=== PATIENT | female | born 1995 | race Caucasian/White ===

== ENCOUNTER 2023-11-07 07:58 | Outpatient (CLI) | payer BC, SELFPAY | END 2023-11-07 09:20 | disposition home or self-care (01) | LOC: LABOR 09:51 → OB 11-08 10:02 | PROVIDERS: Referring Provider Nurse Practitioner Obstetrics & Gynecology; Visit Provider Nurse Practitioner Obstetrics & Gynecology | DX: O48.0 Post-term pregnancy (principal); Z3A.40 40 weeks gestation of pregnancy | CPT/HCPCS: 59025; G0378; G0379 ==

== ENCOUNTER 2023-11-07 15:24 | Inpatient (IN) | payer BC, SELFPAY ==
--- NOTE | 2023-11-07 16:58 | PM.OBTRLD ---
Visit Information Visit Information Date of evaluation: 11/07/23 Primary OB Provider: Radha Goldstein Reason for Evaluation: Yes rule out labor Comments/Additional reasons for admission: Mary Colón, is a 28yo, @ 40w2d by LMP concordant with 11w US presenting for evaluation of labor. Contractions started around 0000 with blood tinged, clear SROM at 0450. Currently having mild contractions every 4-5 minutes that she is able to talk through. Denies vaginal bleeding. Vital Signs Vital Signs: see below. PFSH Surgical History Hx of repair of rotator cuff Family History Other Cancer Congestive heart failure Diabetes mellitus Hypertension Social History marital status: do you feel safe at home: Yes Smoking Status: Never smoker Review of Systems Review of Systems ROS: Yes All systems reviewed with the patient and are negative except as otherwise documented Exam Vital Signs (past 8 hours): BP: 125/78 HR: 93bpm T: 36.4c tempral Objective Labs 11/07/23 16:18 Evaluation Evaluation Baseline heart rate: 145 Variability: Moderate (11-25) monitor accelerations: Present Monitor Decelerations: Absent Contraction Frequency (minutes): 4 Uterine Contraction Intensity: Mild Category of Tracing: Reactive Diagnosis, Plan/Disposition Plan/Disposition Plan: A: 28yo, @ 40w2d Early labor Rh Negative GBS negative ROM x 4 hours RNST P: Reviewed reassuring FHR and mild contractions with Mary. Discussed option to go home and return when contractions become more intense or be admitted. Mary would like to go home and return when labor intensifies. Plan to admit upon return to L&D.
--- NOTE | 2023-11-07 17:30 | PM.OBHP.1 ---
OB HPI Date/Time Date of admission: 11/07/23 Date Patient Seen: 11/07/23 Time Patient Seen: 15:36 History of Present Condition Chief complaint: labor : 1 Para: 0 Estimated Date of Delivery: 11/05/23 Estimated Gestational Age (weeks): 40w2d Narrative: Mary Colón is a 28 year old female, @ 40w2d by sure LMP concordant with 11w US presenting for active labor. Contractions have increased in intensity, are now 3min apart, lasting 1min, and is having to breath heavily through them. Has continued to leak clear, blood tinged fluid. movement felt. Is accompanied by FOB and mother. Interested in low-intervention, vaginal , planning unmedicated, declines IV. care followed by CN. notable for: Rh negative. Relevant medical history: dyspareunia. History of Present care: good care, initiated at week # (12), number of visits (9) and pounds weight gain (31) Dating criteria: LMP confirmed by 1st trimester US Ultrasounds: normal 1st trimester US and normal mid trimester US Obstetrical complications: none Medical complications: none Preadmission Labs Blood type: A (-) negative -: Antibody screen: negative, GBS status: negative, HBsAG: negative, HIV: negative and RPR/VDLR: negative -: Chlamydia screen: not detected and Gonorrhea screen: not detected -: Rubella: immune and Varicella: immune HCT: 32.9 HCAB: negative PAP: Normal Cell-free DNA: negative Urine: normal 1 hr GTT: 70 Narrative: MsAFP negative Prior (ies) History: none Evaluation Evaluation Baseline heart rate: 145 Variability: Moderate (11-25) monitor accelerations: Present Monitor Decelerations: Early Contraction Frequency (minutes): 3 Uterine Contraction Intensity: Moderate Status: Category l Dilation (cm): 4 Effacement (%): 80 Dilation: 3-4 cm Effacement: >/=80% station: -2 Position of cervix: mid Consistency: soft Martinez score: 9 PFSH Surgical History Hx of repair of rotator cuff Family History Other Cancer Congestive heart failure Diabetes mellitus Hypertension Social History marital status: do you feel safe at home: Yes Smoking Status: Never smoker Meds Home Medications and Allergies Home Medications Medication Instructions Recorded Confirmed Type prenat.vits,maddie,jdi-ddeo-jvhyn tab 11/07/23 History Allergies Allergy/AdvReac Type Severity Reaction Status Date / Time amoxicillin Allergy Verified 11/07/23 18:00 Review of Systems Review of Systems ROS: Yes All systems reviewed with the patient and are negative except as otherwise documented OB Exam Vital signs Blood Pressure: 139/88 Pulse Rate: 87 Temperature: 97.0 F Resp Effort & Inspection: normal respiratory effort and able to speak in complete sentences Auscultation: clear to auscultation bilaterally Cardio Rate: regular rate Rhythm: regular rhythm Heart Sounds: S1 normal and S2 normal Presentation: vertex Objective Labs 11/07/23 16:18 Assessment and Plan Assessment and Plan Assessment and Plan narrative: A: 28yo, @ 40w2d Active labor Rh negative GBS negative FHR Cat I P: Admit with routine labs/order Appropriate for intermittent auscultation as desired Provide labor support as needed Reassess in 4hr or sooner prn
[2023-11-07 17:53] VITALS: BP 139/88
[2023-11-07 17:57] VITALS: BP 139/88; PULSE 87; TEMP 36.1
[2023-11-07 19:38] LABS: Add Manual Diff / Slide Review NO; Basophils Absolute Auto 100 /uL (0-100); Basophils Percent Auto 0.7 % (0-2); Eosinophils Absolute Auto 0 /uL (0-450); Eosinophils Percent Auto 0.1 % (2-4); Hemoglobin 12.8 g/dL (12.0-16.0); Lymphocytes Absolute Auto 800 /uL (1100-4500); Lymphocytes Percent Auto 4.7 % (25-40); Mean Corpuscular HGB Conc 33.7 % (30-36); Mean Corpuscular Hemoglobin 30.7 PG (26-34); Monocytes Absolute Auto 700 /uL (0-900); Monocytes Percent Auto 4.1 % (3-14); Neutrophils Absolute Auto 14600 /uL (1500-7000); Neutrophils Percent Auto 90.4 % (50-75); Platelet Count 202 X10^3/uL (150-400); Red Blood Cell Count 4.17 X10^6/uL (4.0-5.2); Red Cell Distribution Width 13.9 % (11.6-14.8); White Blood Cell Count 16.1 X10^3/uL (4.5-11.0)
[2023-11-07] MEDS: OXYTOCIN 10 UNIT/ML VIAL IM (23:18)
--- NOTE | 2023-11-08 00:02 | P.PCN_ITS ---
Procedures Date/Time Date of procedure: 11/08/23 Time of procedure: 01:00 General Procedure description: THIRD DEGREE PERINEAL LACERATION REPAIR PROCEDURE NOTE CTSP by Dominique Midwifery MICHELLE for repair of third degree laceration sustained at the time of primip late on the evening of 11/07/2023. Initial assessment confirms 3rd degree laceration, minimal bleeding following delivery. Options for pain relief discussed and patient would like regional block for repair. On- call anesthesia called and DUYEN placed. Once the patient was appropriately anesthetized, EUA confirmed earlier findings with bilateral sulcal tears and rectal exam showed no rectal mucosal defect or extension beyond the anal verge. Repair of the sulcal tears performed with 2-0 chromic in a running interlocking stitch. Repair of the midline third degree perineal laceration performed in layers with the sphincter repaired with 0 Vicryl reapproximating the sphincter mm. body as well and the surrounding fasciae, 0 Vicryl interrupteds/figure of eights approximating deep perineal body tissues, and 00 CCGS in a running interlocking or subcuticular stitch for closure of the vaginal/perineal skin edges, Patient tolerated repair well with an estimated EBL of <100 cc. Complications: none
--- NOTE | 2023-11-08 00:04 | P.PCNOB_ITS ---
Labor & Delivery Delivery date: 11/08/23 Cervical ripening method: none Induction method: none Delivery monitor: external FHT (intermittent auscultation) Route of delivery: L&D Laceration Description: Vaginal - 3rd Degree Delivery repair: other (See Dr. Vuong's note regarding repair) Quantitative Blood Loss: 362 Anesthesia Type: None Narrative: Mary Colón is a 28 year old female, now P1 @ 40w2d by sure LMP concordant with 11w US who presented for active labor with ruptured membranes. Contractions started around midnight with blood tinged, clear SROM at 0450. Upon admission, contractions were moderate, 3min apart, lasting 1min. Cervix was 4/80/-2, mid, soft. monitoring was Category I and was switched to intermittent auscultation. Normal labor course. Anesthesia type: none. Continuous labor support provided by FOB, mother, CNM, and SNM. Progressed to feeling rectal pressure and upon CE was found to be complete. Was coached/guided through pushing. heart rate was reassuring throughout pushing. Strong pushing approximately two and a half hours, with brisk bleeding noted shortly before mireles crown and subsequent delivery of vertex over 3rd degree perineal laceration. No nuchal cord, shoulders delivered with gentle traction. Baby girl placed on maternal stomach. Apgars 8 and 9. Pitocin IM administered to R deltoid for AMSTL. Perineum assessed and consulted with OB Dr. Vuong for further assessment and repair of suspected 3rd degree laceration. (See his note) Cierra placenta delivered at 19min with maternal pushing and gentle cord traction. QBL: 362 mL initally; 765 ml total after completion of repair approx 0230. Italia was skin to skin with Herrera during epidural placement and then breastfed well during laceration repair. Mary and Herrera are thrilled to meet their daughter, Italia! [place] Baby 1: gender: Female Presentation: vertex Position: Right Occiput Anterior Placenta delivery description: Spontaneous Cord Vessel Description: 3 Vessels score (1 min): 8 score (5 min): 9 weight: 4.088 kg Plan for aftercare: Routine care
--- NOTE | 2023-11-08 01:26 | PM.OBPNLAB ---
Date/Time Date Patient Seen: 11/08/23 Time Patient Seen: 20:00 Pain Control Pain control: tolerating well Comments: Mary is working hard in the tub room on hands & knees with and without CUB. Jamie, her mom and CNM with her for support. Drinking sips of water regularly. VSS Pelvic Exam Comments: Exam deferred. Contractions Monitor mode: External (doppler) Contraction frequency (min): 3 Contraction duration (min): 1 Contraction pattern: Regular Contraction intensity: Moderate Status Heart Rate Baseline: 130 Comments: Increases noted. Decreases absent. Assessment and Plan Assessment: active labor Plan: continuous present management Comments: in active labor at 40w2d GBS neg Rh neg Active labor Afebrile FHR reassuring by doppler Continue bedside labor support Offer exam PRN Anticipate NSVB.
--- NOTE | 2023-11-08 01:29 | PM.AN.REGBLK ---
Regional Block Pre-procedure PMH/ROS narrative: 28yo healthy female who delivered without anesthesia, consulted for anesthesia for perineal tear repair. PSH/Anesthesia history narrative: Shoulder surgery Exam narrative: S/P natural delivery, significant amount of blood with clots on the bed pad from delivery, otherwise healthy. ASA Class: II Labs: Hct 38.0 % (36-46) 11/07/23 16:18 Plt Count 202 X10^3/uL (150-400) 11/07/23 16:18 Medications: Current Medications Generic Name Dose Route Start Last Admin Trade Name Freq PRN Reason Stop Dose Admin Calcium Carbonate 1,000 mg 11/07/23 16:18 Calcium Carbonate 500 Mg Tab PO Q4HR PRN Dyspepsia Carboprost Tromethamine 250 mcg 11/07/23 16:18 Carboprost 250 Mcg/Ml Ampul IM Q90M PRN Bleeding Diphenhydramine HCl 25 mg 11/08/23 01:26 Diphenhydramine 50 Mg/Ml Vial IV Q10M PRN Pruritis Ephedrine Sulfate 5 mg 11/08/23 01:26 Ephedrine 50 Mg/Ml Vial IV Q5M PRN Blood pressure decrease more than 20% of baseline. Fentanyl 100 mcg 11/07/23 16:18 Fentanyl 100 Mcg/2 Ml Inj IV Q1H PRN Pain, Severe (7-10) Oxytocin/Lactated Ringer's 30 unit in 500 mls @ 200 mls/hr 11/07/23 16:18 Oxytocin Premix IV CONT PRN Bleeding Protocol Tranexamic Acid 1,000 mg/ 100 mls @ 200 mls/hr 11/07/23 16:18 Sodium Chloride IV NOW PRN Bleeding Oxytocin/Lactated Ringer's 30 unit in 500 mls @ 2 mls/hr 11/07/23 16:30 Oxytocin Premix IV TITRATE JOSELYN Protocol 2 MILLIUNIT/MIN Lactated Ringer's 1,000 mls @ 100 mls/hr 11/07/23 16:30 Lactated Ringers IV CONT JOSELYN Lidocaine HCl 20 ml 11/07/23 16:18 Lidocaine 1% 20 Ml INJ INTRA-OP PRN Post Delivery Methylergonovine Maleate 0.2 mg 11/07/23 16:18 Methylergonovine 0.2 Mg Tablet PO Q6HR PRN Heavy Bleeding Methylergonovine Maleate 0.2 mg 11/07/23 16:18 Methylergonovine 0.2 Mg/Ml Vial IM NOW PRN Bleeding Misoprostol 800 mcg 11/07/23 16:18 Misoprostol 200 Mcg Tablet TN NOW PRN Bleeding Misoprostol 400 mcg 11/07/23 16:18 Misoprostol 200 Mcg Tablet SL NOW PRN Bleeding Nalbuphine HCl 2.5 mg 11/08/23 01:26 Nalbuphine 20 Mg/Ml Ampul IV Q10M PRN Pruritis Naloxone HCl 0.2 mg 11/07/23 16:18 Naloxone 0.4 Mg/Ml Vial IV Q2MIN PRN Opiate Reversal Ondansetron HCl 4 mg 11/07/23 16:18 Ondansetron 4 Mg/2 Ml Inj IV Q4HR PRN Nausea And Vomiting Ondansetron HCl 4 mg 11/08/23 01:28 Ondansetron 4 Mg/2 Ml Inj IV 11/09/23 01:29 Q6HR PRN Nausea Allergies: Allergies Allergy/AdvReac Type Severity Reaction Status Date / Time amoxicillin Allergy Verified 11/07/23 18:00 Procedure Insertion date: 11/08/23 Insertion time: 00:56 Prep/Local: betadine x3 and 1% lidocaine Interspace: L3-L4 Patient position: sitting Needle: 18 gauge Hustead Loss of resistance with: saline (+ Air) GREGORY at (cm): 7 Catheter placed at SKIN (cm): 13 Catheter in SPACE (cm): 6 Insertion: No CSF, No Blood, No Paresthesia with insertion, No Paresthesia with injection and No Test dose reaction Initial Medications TEST DOSE time: 00:57 TEST DOSE: 1.5% lidocaine with epinephrine 1:200k (mL): 3 BOLUS DOSE time: 00:58 BOLUS DOSE (mL): 6 BOLUS DOSE med: other (3ml 0.5% Bupivacaine + 3ml 2% Lidocaine) Infusion Initial rate (mL/hr): 0 Subsequent interventions: Bolus - 5ml 0.5% Bupivacaine + 5ml 8.4% NaBiCarb. Around 0400, sensation to lower extremities back to baseline, patient able to move lower extremities, vital signs close to preop values. Post-procedure Anesthesia date START: 11/08/23 Anesthesia time START: 00:19 Anesthesia date END: 11/08/23 Anesthesia time END: 04:00 Post-procedure Anesthesia Assessment: Yes CV function: HR/BP stable, Yes Resp function: RR/sat/airway adequate, Yes Post-op hydration adequate, Yes Pain control adequate, Yes Nausea & vomiting absent, Yes Temperature > 36 C and Yes Mental status appropriate
[2023-11-08] MEDS: KETOROLAC 30 MG/ML VIAL IV ×4 (03:18→21:40)
[2023-11-08] MEDS: SENNOSIDES 8.6 MG TABLET PO ×3 (04:30→21:41)
[2023-11-08] MEDS: MAGNESIUM HYDROXIDE 30 ML UDC PO (09:09)
[2023-11-08] MEDS: PSYLLIUM HUSK 1 PACKET PO (09:09)
[2023-11-08 15:18] LABS: Add Manual Diff / Slide Review NO; Basophils Absolute Auto 0 /uL (0-100); Basophils Percent Auto 0.2 % (0-2); Eosinophils Absolute Auto 0 /uL (0-450); Eosinophils Percent Auto 0.1 % (2-4); Hematocrit 31.2 % (36-46); Hemoglobin 10.8 g/dL (12.0-16.0); Lymphocytes Absolute Auto 2200 /uL (1100-4500); Lymphocytes Percent Auto 13.4 % (25-40); Mean Corpuscular HGB Conc 34.5 % (30-36); Mean Corpuscular Hemoglobin 30.6 PG (26-34); Mean Corpuscular Volume 88.6 fL (80-100); Monocytes Absolute Auto 1400 /uL (0-900); Monocytes Percent Auto 8.5 % (3-14); Neutrophils Absolute Auto 12700 /uL (1500-7000); Neutrophils Percent Auto 77.8 % (50-75); Platelet Count 202 X10^3/uL (150-400); Red Blood Cell Count 3.52 X10^6/uL (4.0-5.2); Red Cell Distribution Width 13.9 % (11.6-14.8); White Blood Cell Count 16.4 X10^3/uL (4.5-11.0)
[2023-11-09] MEDS: IBUPROFEN 600 MG TABLET PO (06:01)
--- NOTE | 2023-11-09 08:38 | PM.OBDS.1 ---
Discharge Providers Provider Date of admission: 11/07/23 15:24 Discharge Date: 11/09/23 Consults: 11/09/23 02:29 Consult to Regulatory Internship Routine Comment: Discharge provider: Radha Goldstein CNM, ARNP Summary Hospital Course Date Patient Seen: 11/09/23 Time Patient Seen: 08:38 Diagnoses: O80 O70.23 Peripartum Data Infant Delivery Method: Natural Vaginal Laceration Description: Periurethral - 3rd Degree 1: Gender: Female Disposition of : home Status at Discharge Cognitive/behavioral status at discharge: at baseline, oriented Functional status at discharge: independent ambulation Overall status at discharge: patient is progressing back to baseline Time Spent with Patient Time attestation: Total time spent providing and/or coordinating discharge services: Objective Labs 11/08/23 15:02 Labs: Laboratory Results - last 24 hr 11/08/23 15:02 WBC 16.4 H RBC 3.52 L Hgb 10.8 L Hct 31.2 L MCV 88.6 MCH 30.6 MCHC 34.5 RDW 13.9 Plt Count 202 Neut % (Auto) 77.8 H Lymph % (Auto) 13.4 L [place] % (Auto) 8.5 Eos % (Auto) 0.1 L Baso % (Auto) 0.2 Neut # (Auto) 27612 H Lymph # (Auto) 2200 [place] # (Auto) 1400 H Eos # (Auto) 0 Baso # (Auto) 0 Exam Vital Signs (past 8 hours): BP: 121/70 HR: 82 bpm T: 98.4f temporal Other: Fundus firm at U, midline. Lochia scant 3rd degree laceration repair intact w/o signs of infection Extrem Other: Mild bilateral lower leg swelling Discharge Plan Discharge Plan Patient Disposition: Home Discharge orders & Medications Prescriptions: Continued Vitamin Tablet Follow up/Referrals: Radha Goldstein CNM, ARNP [Advanced Document Design Specialist] - 2 Weeks ( 12/20/23 - 6w PP appointment) Diet/Activity/Treatments Diet: Diet as Tolerated and Regular Diet comment: increase fiber and fluid to support healing and stooling Activity: Low-lion activity for 2 weeks, gradual increase up to 6 weeks and beyone Skin/Wound/Dressing Care Skin care: normal skin care. Report to your healthcare provider any signs of infection, such as:: chills, fever, increased pain, unusual drainage and unusual redness Visit Report/Discharge Packet Stand Alone Forms: Patient Portal/API
[2023-11-09] MEDS: DERMOPLAST SPRAY 20% 60 ML 1 SPRAY TOP (09:07)
[2023-11-09] MEDS: MAGNESIUM HYDROXIDE 30 ML UDC PO (09:08)
[2023-11-09] MEDS: SENNOSIDES 8.6 MG TABLET PO (09:08)
[2023-11-09 09:29] VITALS: BP 111/64; PULSE 75; RESP 17; TEMP 36.7
== END 2023-11-09 10:45 | disposition home or self-care (01) | DRG 768 ==
PROVIDERS: Admitting Provider Advanced Practice Midwife; Referring Provider Advanced Practice Midwife; Visit Provider Advanced Practice Midwife
DX: O70.20 Third degree perineal laceration during delivery, unspecified (principal); Z37.0 Single live birth; Z3A.40 40 weeks gestation of pregnancy; O48.0 Post-term pregnancy
CPT/HCPCS: 36415; 59025; 59050; 85025; 86850; 86900; 86901; G0379; J0171; J1885; J2590